=== PATIENT | female | born 1990 | race American Indian/Alaskan Native ===

== ENCOUNTER 2018-04-02 19:45 | Outpatient (CLI) | payer OTHER, MEDICAID ==
[2018-04-02 23:09] LABS: Basophils # (Auto) 0.1 K/mm3 (0.0-0.1); Basophils % (Auto) 0.7 % (0.0-1.8); Eosinophils # (Auto) 0.1 K/mm3 (0.0-0.4); Eosinophils % (Auto) 0.9 % (0.0-4.3); Hematocrit 35.9 % (30.3-42.9); Hemoglobin 11.6 gm/dl (10.1-14.3); Lymphocytes # (Auto) 3.5 K/mm3 (1.2-5.4); Lymphocytes % (Auto) 24.6 % (13.4-35.0); Mean Corpuscular HGB Conc 32 % (30-34); Mean Corpuscular Volume 79 fl (79-97); Monocytes % (Auto) 7.1 % (0.0-7.3); Platelet Count 194 K/mm3 (140-440); Red Blood Count 4.53 M/mm3 (3.65-5.03); Red Cell Distribution Width 13.7 % (13.2-15.2)
[2018-04-02 23:16] LABS: INR 0.91 (0.87-1.13); Partial Thromboplastin Time 23.4 Sec. (24.2-36.6)
--- NOTE | 2018-04-03 00:38 | Ultrasound Report ---
FINAL REPORT EXAM: US OB LIMITED HISTORY: R/O PLACENTA ABRUPTION. TECHNIQUE: Transabdominal sonographic evaluation was performed of the female pelvis with and without color Doppler imaging. EDC: 05/10/2018. PRIORS: None. FINDINGS: Single, intrauterine is noted, position is cephalic. A 2.3 cm region of retroplacental sonolucency is present between the uterine wall in the placenta (im age 14). A few vessels may traverse the sonolucent region. Plancenta echogenicity otherwise within no rmal limits. Measurements: heart rate: 144 beats per minute. Placenta grade: 1. Placental location: Anterior. IMPRESSION: 1. 2.3 cm hypoechoic region present between the uterine wall and placenta with a few crossing vessels and similar echogenicity to the uterine wall. Differential includes myometrial contraction or small retroplacental hematoma. Correlation with clinical examination requested as abruption is predominatel y a clinical diagnosis. Recommend short interval followup imaging as focal myometrial contraction yessi uld resolve with time. 2. No findings to suggest distress.
== END 2018-04-03 01:10 | disposition home or self-care (01) ==
LOC: TRG 19:45
PROVIDERS: ATTEND Obstetrics & Gynecology
DX: O9A.213 Injury, poisoning and certain other consequences of external causes complicating pregnancy, third trimester (principal); Z3A.34 34 weeks gestation of pregnancy; Z88.0 Allergy status to penicillin; W19.XXXA Unspecified fall, initial encounter; Y93.89 Activity, other specified; Y92.89 Other specified places as the place of occurrence of the external cause; Y99.8 Other external cause status
CPT/HCPCS: 36415; 76815; 85025; 85610; 85730